=== PATIENT | male | born 1940 | race Caucasian/White ===

== ENCOUNTER 2018-08-27 05:23 | Day surgery (SDC) | payer OTHER, BC ==
[~2018-08-27] VITALS: Ht 180.3 cm; Wt 92.1 kg
--- NOTE | ~2018-08-27 | O ---
[facility] [place] [address] OPERATIVE REPORT Name: SUKHDEV DIAZ Room #: 150-1 [facility]..#: [id number] Admission: 08/27/18 Attend Phys: Hugh Ayala MD Discharge: Date of : 40 Report #: [id number] THIS REPORT FOR: //name// CC: Thais Ayala DATE OF SERVICE: 08/27/2018 SURGEON: Hugh Ayala MD STREETCAR DISPATCHER: None. PREOPERATIVE DIAGNOSIS: Bilateral lower lid ectropion. POSTOPERATIVE DIAGNOSIS: Bilateral lower lid ectropion. OPERATION PERFORMED: Bilateral lower lid ectropion repair. ANESTHESIA: Local with IV sedation. COMPLICATIONS: None. INDICATIONS FOR PROCEDURE: This patient has bilateral acquired lower lid ectropion with chronic tearing and discharge. The current procedures are undertaken in order to improve the patient's visual function, lacrimal outflow, and level of comfort. Informed consent was obtained to include but not limit to the risk of loss of vision, bleeding, infection, scarring, failure to improve the problem and need for further surgery. DESCRIPTION OF OPERATION: The patient was taken to the operating room where 2% Xylocaine with epinephrine mixed with equal parts of 0.75% Marcaine with Wydase was administered transcutaneously and transconjunctivally to each lower lid and lateral canthal area. The patient was then prepped and draped in the usual sterile fashion. A Yumiko clamp was then used to clamp the left lateral canthus following which a sharp canthotomy and cantholysis were performed. The tarsal strip was prepared laterally, removing the lash bearing portion of the redundant lid margin and the redundant tarsal plate. Hemostasis was achieved with a monopolar cautery, as it was throughout the case. The tarsal strip was then secured to the internal portion of the lateral orbital tubercle with two interrupted 5-0 Prolene sutures. The lateral canthal angle was sharply reformed as the subcutaneous structures and the skin were closed with multiple interrupted 6-[address] [facility] [address] [place] [address] OPERATIVE REPORT Name: ABIGAIL DIAZOMON Room #: 150-1 [facility].#: [id number] Admission: 08/27/18 Attend Phys: Hugh Ayala MD Discharge: Date of : 40 Report #: [id number] Attention was then turned to the right side where the same procedure was performed. The wounds were cleaned and dressed with ophthalmic antibiotic ointment. The patient was then transported to the recovery area, having tolerated the procedure well with no anesthetic or operative complications being noted. By: [id number] Hugh Ayala MD /nt
[~2018-08-27 05:23] MED LIST: BIDIL TABLET1 EACH PO; CARVEDILOL25 MG PO; COZAAR 25 MG TA25 M2 PO; DEPAKOTE 250MG250 M1 PO; SERTRALINE HCL50 MG PO; XARELTO15 MG PO; ZYPREXA2.5 MG PO
[2018-08-27] MEDS ORDERED: TYLENOL325 MG PO (07:43)
[2018-08-27] MEDS ORDERED: VITAMIN B-12500 MCG PO (07:47)
[2018-08-27] MEDS ORDERED: DEPAKOTE ER500 MG PO (07:48)
[2018-08-27] MEDS ORDERED: VITAMIN D-32000 UNIT PO (07:50)
[2018-08-27] MEDS ORDERED: IRON325 PO (07:52)
[2018-08-27] MEDS ORDERED: AMARYL2 MG PO (07:52)
[2018-08-27] MEDS ORDERED: LASIX 20 MG TAB20 MG PO (07:53)
[2018-08-27] MEDS ORDERED: LOPERAMIDE 2 MG2 M1 PO (07:54)
[2018-08-27] MEDS ORDERED: VICTOZA0.6 MG/0.1 SUBQ (07:55)
[2018-08-27] MEDS ORDERED: LOVAZA1000 MG PO (07:56)
[2018-08-27] MEDS ORDERED: CENTRUM SILVER1 EAC4 PO (07:57)
[2018-08-27] MEDS ORDERED: SENNA8.6 MG PO (07:58)
[2018-08-27] MEDS ORDERED: ZOCOR20 MG PO (07:59)
[2018-08-27] MEDS ORDERED: SPIRONOLACTONE25 M1 PO (07:59)
[2018-08-27] MEDS ORDERED: TRAZODONE 150150 M1 PO (08:00)
[2018-08-27 10:19] VITALS: BP 144/95
== END 2018-08-27 11:05 | disposition home or self-care (01) ==
LOC: TBA 05:23 → OR 05:23
DX: H02.105 Unspecified ectropion of left lower eyelid (principal); H02.102 Unspecified ectropion of right lower eyelid; I10 Essential (primary) hypertension; E11.9 Type 2 diabetes mellitus without complications; I48.91 Unspecified atrial fibrillation; E78.5 Hyperlipidemia, unspecified; F32.9 Major depressive disorder, single episode, unspecified; Z95.0 Presence of cardiac pacemaker; Z79.01 Long term (current) use of anticoagulants; Z98.41 Cataract extraction status, right eye; Z98.42 Cataract extraction status, left eye; Z87.891 Personal history of nicotine dependence; Z96.653 Presence of artificial knee joint, bilateral; Z86.73 Personal history of transient ischemic attack (TIA), and cerebral infarction without residual deficits; Z98.890 Other specified postprocedural states; Z79.899 Other long term (current) drug therapy
CPT/HCPCS: 50010; 50101; 50386; 50398; 51636; 56527; 56531; 62110; 62850; 70005

== ENCOUNTER 2018-09-24 05:29 | Day surgery (SDC) | payer OTHER, BC ==
[~2018-09-24] VITALS: Ht 180 cm; Wt 92.0 kg
--- NOTE | ~2018-09-24 | O ---
[facility] [place] [address] OPERATIVE REPORT Name: SUKHDEV DIAZ Room #: 150-1 [facility]..#: [id number] Admission: 09/24/18 Attend Phys: Hugh Ayala MD Discharge: Date of : 40 Report #: [id number] THIS REPORT FOR: //name// CC: Justa Ayala DATE OF SERVICE: 09/24/2018 TIPPLE ENGINEER: None. PREOPERATIVE DIAGNOSIS: Bilateral upper lid ptosis with superior visual field defects both eyes. POSTOPERATIVE DIAGNOSIS: Bilateral upper lid ptosis with superior visual field defects both eyes. OPERATION PERFORMED: Bilateral upper lid functional ptosis repair. TIPPLE ENGINEER: None. ANESTHESIA: Local with IV sedation. COMPLICATIONS: None. INDICATIONS FOR PROCEDURE: This patient has bilateral upper lid ptosis with superior visual field loss both eyes. Visual field testing demonstrates dense superior visual defects. Retesting with the upper lid elevated shows an improvement in visual field loss of over 30% and in excess of 12 degrees. The current procedure is being undertaken in order to improve the patient's visual function. Informed consent was obtained to include but not limited to the risk of loss of vision, bleeding, infection, scarring, failure to improve the problem and need for further surgery, such as adjustment of lid height. DESCRIPTION OF PROCEDURE: The patient was taken to the operating room, where 2% Xylocaine with epinephrine mixed with equal parts of 0.75% Marcaine with Wydase was administered transcutaneously to each upper lid. The patient was then prepped and draped in the usual sterile fashion. An upper lid crease incision was then made bilaterally and the dissection was carried down until the orbital septum was identified. The orbital septum was then cleared and the preaponeurotic fat identified. The levator aponeurosis was then disinserted from the anterior surface of the tarsal plate and dissected [address] [address] OPERATIVE REPORT Name: SUKHDEV DIAZ Room #: 150-1 [facility].#: [id number] Admission: 09/24/18 Attend Phys: Hugh Ayala MD Discharge: Date of : 40 Report #: [id number] free in the avascular Real's muscle plane. The aponeurosis was then advanced and reattached to the anterior surface of the tarsal plate with interrupted mattress 6-0 Novafil sutures on each side, adjusting for height and contour. The redundant aponeurosis was then amputated. The incision was then closed with multiple interrupted 6-0 chromic sutures that were used to recreate an upper lid crease. The skin was closed with a running 6-0 plain gut suture. The wound was then cleaned and dressed with ophthalmic antibiotic ointment followed by a Telfa pad. The patient was transported to the recovery area, having tolerated the procedure well with no anesthesia or operative complications being noted. By: 0831 [id number] MD britany Doran
[~2018-09-24 05:29] MED LIST changes: +AMARYL2 MG PO; +CENTRUM SILVER1 EAC4 PO; +DEPAKOTE ER500 MG PO; +IRON325 PO; +LASIX 20 MG TAB20 MG PO; +LOPERAMIDE 2 MG2 M1 PO; +LOVAZA1000 MG PO; +SENNA8.6 MG PO; +SPIRONOLACTONE25 M1 PO; +TRAZODONE 150150 M1 PO; +TYLENOL325 MG PO; +VICTOZA0.6 MG/0.1 SUBQ; +VITAMIN B-12500 MCG PO; +VITAMIN D-32000 UNIT PO; +ZOCOR20 MG PO
[2018-09-24 07:30] VITALS: BP 117/68
[2018-09-24 07:49] LABS: CALCIUM 8.2 mg/dL (8.5-10.1); CREATININE 1.6 mg/dL (0.7-1.3); POTASSIUM 4.1 mmol/L (3.5-5.1)
== END 2018-09-24 09:17 | disposition home or self-care (01) ==
LOC: TBA 05:29 → OR 05:29
PROVIDERS: Anesthesiology
DX: H02.403 Unspecified ptosis of bilateral eyelids (principal); H53.462 Homonymous bilateral field defects, left side; H53.461 Homonymous bilateral field defects, right side; I10 Essential (primary) hypertension; E78.5 Hyperlipidemia, unspecified; E11.9 Type 2 diabetes mellitus without complications; I48.91 Unspecified atrial fibrillation; F32.9 Major depressive disorder, single episode, unspecified; Z98.41 Cataract extraction status, right eye; Z98.42 Cataract extraction status, left eye; Z96.653 Presence of artificial knee joint, bilateral; Z79.01 Long term (current) use of anticoagulants; Z87.891 Personal history of nicotine dependence; Z87.19 Personal history of other diseases of the digestive system; Z95.0 Presence of cardiac pacemaker; Z98.890 Other specified postprocedural states; Z79.899 Other long term (current) drug therapy; Z87.448 Personal history of other diseases of urinary system
CPT/HCPCS: 50010; 50101; 50386; 50398; 51636; 56528; 56531; 62110; 62850; 70005

== ENCOUNTER 2018-11-13 17:25 | Inpatient (IN) | payer OTHER, BC ==
[~2018-11-13] VITALS: Ht 177.8 cm; Wt 65.8 kg
[2018-11-13 17:44] VITALS: BP 135/79
[2018-11-13 18:34] LABS: URINE BILIRUBIN NEGATIVE (Negative); URINE BLOOD NEGATIVE (Negative); URINE CLARITY CLEAR; URINE COLOR YELLOW; URINE GLUCOSE-RANDOM* NEGATIVE (Negative); URINE KETONES NEGATIVE (Negative); URINE LEUKOCYTES-REFLEX NEGATIVE (Negative); URINE NITRITE-REFLEX NEGATIVE (Negative); URINE PROTEIN (DIPSTICK) NEGATIVE (Negative); URINE SPECIFIC GRAVITY 1.015 (1.005-1.035); URINE UROBILINOGEN 0.2 E.U./dl (0.2-1.0)
[2018-11-13 18:36] LABS: AMP/METHAMP Negative (Negative); BARBITURATES Negative (Negative); BENZODIAZEPINES Negative (Negative); COCAINE Negative (Negative); METHADONE Negative (Negative); OPIATES Negative (Negative); PCP Negative (Negative)
[2018-11-13 18:58] LABS: ABSOLUTE NEUTROPHILS 2.8 thou/uL (1.4-8.2); BASOPHILS 0.8 % (0.0-2.0); EOSINOPHILS 5.5 % (0.0-3.0); HEMATOCRIT 29.7 % (42.0-52.0); HEMOGLOBIN 10.6 gm/dL (14.0-18.0); LYMPHOCYTES 32.8 % (24.0-44.0); MCH 34.6 pg (26.0-34.0); MCHC 35.6 g/dL (28.0-37.0); MONOCYTES 8.8 % (1.0-8.0); PLATELET COUNT 150 thou/uL (150-400); POLYS 52.1 % (36.0-66.0); RBC 3.06 mil/uL (4.50-6.00); RDW 13.1 % (10.5-14.5); WBC 5.3 thou/uL (4.0-11.0)
[2018-11-13 19:09] LABS: ANION GAP 8 mmol/L (7-16); BUN 24 mg/dL (7-18); CALCIUM 8.8 mg/dL (8.5-10.1); CHLORIDE 103 mmol/L (98-107); CO2 28 mmol/L (21-32); CREATININE 1.6 mg/dL (0.7-1.3); GLUCOSE 238 mg/dL (74-106); POTASSIUM 4.5 mmol/L (3.5-5.1); SODIUM 139 mmol/L (136-145)
[2018-11-13 19:17] LABS: ALBUMIN 3.3 g/dL (3.4-5.0); MAGNESIUM 2.1 mg/dL (1.8-2.4); SALICYLATE < 2.8 mg/dL (2.8-20.0); SGOT 19 U/L (15-37); SGPT 11 U/L (30-65); TOTAL BILIRUBIN 0.3 mg/dL (<0.1-1.0); TOTAL PROTEIN 6.8 g/dL (6.4-8.2); TROPONIN-I <0.06 ng/mL (<0.06)
[2018-11-13 20:30] VITALS: BP 143/110
--- NOTE | 2018-11-14 01:06 | NUR ---
ASSUMED PT CARE 1900. PT ARRIVED TO UNIT VIA ER. PT ALERT TO SELF. ADMISSION COMPLETED. PT CONFUSED, AND ANXIOUS. PT REORIENTED TO SITUATION AND PLACE MULTIPLE TIMES. PT BELONGINGS PLACED IN LOCKER. PT WANTED TO USE PHONE APPROX 0000. PT BECAME AGITATED AND FRUSTRATED WHEN TOLD HE COULD NOT USE PHONE, REACHED OVER THE DOOR AND ATTEMPTED TO ENTER THE NURSES STATION AFTER BEING TOLD MULTIPLE TIMES HE COULD NOT COME INTO THE STATION. PHONE CALL PLACED TO [employer] BILL. [employer] RETURNED CALL AND ORDERS PLACED TO RESTART SOME OF PT HOME MEDICATIONS. NURSE SPOKE WITH PT APPROX 2030, WAS GIVEN UPDATE ABOUT PT STATUS AND INFORMED THE DOCTOR WOULD SEE PT IN AM. LEFT PHONE NUMBER AND REQUESTED TO SPEAK WITH THE DR IN THE MORNING. WOULD LIKE TO VISIT BUT FEARS HER PRESENCE WOULD ONLY INCREASE AGITATION BECAUSE SHE STATES "HE PLACES ALL THE BLAME ON ME, WHICH IS THE USUAL". WILL LET DAY NURSE KNOW WOULD LIKE TO SPEAK WITH NURSE. CONTINUING TO MONITOR. WILL CONTINUE POC UNTIL EOS.
[2018-11-14 07:49] VITALS: BP 166/108
--- NOTE | 2018-11-14 09:05 | NUR ---
ASSUMED PATIENT CARE AT 0700. PATIENT UP AND WANDERING AROUND FROM D.R. TO NURSE'S STATION. REPEATEDLY ASKING ABOUT HIS PERSONAL CANE. NURSE REMINDED HIM EACH TIME THAT THE NURSE PRACTIONER WILL BE IN TO ADDRESS THE ISSUE. IN THE MEANTIME, PATIENT EDUCATED THAT HE IS TO USE THE WALKER FOR AMBULATION. PATIENT UNDERSTOOD WHAT THE NURSE WAS TELLING HIM.
--- NOTE | 2018-11-14 11:32 | NUR ---
SW was able to complete Psychosocial with Pt. Pt was oriented to self, time and place. Pt was alert and able to give information. Pt denied knowing his dx of dementia and repeatedly asked to call his . Pt stated he has not been able to call her since he arrived and would like to. Pt also insisted he needed to talk to the doctor about "sizures" he was having. SW explained to the Pt why he was on the unit and what we are here to assist with. Pt nodded as if he understood. Pt was clam during the interaction and compliant. SW did call Pt's , Meg [phone], @9230 and left a message for a return call back.
[2018-11-14 13:19] VITALS: BP 166/108
--- NOTE | 2018-11-14 17:38 | NUR ---
PATIENT C/O HAVING DIARRHEA--HAS HAD 2 LOOSE STOOLS, ASKING FOR TWO LOMOTIOL. NURSE CALLING HOSPITALIST, DR. OGDEN.
[2018-11-14 21:54] VITALS: BP 153/101
--- NOTE | 2018-11-14 23:52 | NUR ---
PT AMBULATING IN HALLWAY WITH WALKER AND IS TOLERATING WELL. DENIES PAIN. RESTING COMFORTABLY. NO NEEDS VOICED. CALL LIGHT WITHIN REACH. WILL CONTINUE TO PROVIDE FREQUENT OBSERVATION.
[2018-11-15 06:50] VITALS: BP 145/83
[2018-11-15 07:23] VITALS: BP 140/84
[2018-11-15 07:46] LABS: HEMATOCRIT 28.3 % (42.0-52.0); HEMOGLOBIN 9.9 gm/dL (14.0-18.0); MCH 33.8 pg (26.0-34.0); MCHC 35.1 g/dL (28.0-37.0); MCV 96.3 fL (80.0-100.0); RBC 2.94 mil/uL (4.50-6.00); WBC 5.6 thou/uL (4.0-11.0)
[2018-11-15 09:19] LABS: TSH 2.175 uIU/mL (0.358-3.740)
[2018-11-15 09:58] LABS: ANION GAP 14 mmol/L (7-16); BUN 19 mg/dL (7-18); CALCIUM 9.6 mg/dL (8.5-10.1); CHLORIDE 109 mmol/L (98-107); CHOLESTEROL 128 mg/dL (<200); CO2 23 mmol/L (21-32); CREATININE 1.5 mg/dL (0.7-1.3); GLUCOSE 61 mg/dL (74-106); HDL CHOLESTEROL 39 mg/dL (>40); LDL CHOLESTEROL 70 mg/dL (<100); POTASSIUM 3.6 mmol/L (3.5-5.1); SODIUM 146 mmol/L (136-145); TC:HDL 3.3 Ratio (Not establshd); TRIGLYCERIDE 98 mg/dL (<150); VLDL 20 mg/dL (<40)
--- NOTE | 2018-11-15 17:04 | NUR ---
ASSUMED CARE OF PT @ 0700. PT ATE MEALS UP IN DAYROOM. ALERT TO SELF, PERSON & REORIENTED TO PLACE AND TIME. PT PLEASANT THROUGHOUT SHIFT. NO AGGRESSIVE BEHAVIOR NOTED. PT TALKED TO ON PHONE EARLIER IN SHIFT AND WAS PLEASANT. VISITED IN AFTERNOON AND REQUESTED STAFF ASSIST PT W/SHAVING IN AM WHEN AM CARE COMPLETED. PT VOICED NO COMPLAINTS OF PAIN. NO ACUTE DISTRESS NOTED. BLOOD SUGARS (BS) MONITORED. BS THIS AM WAS 60 & PT RECEIVED JUICE & 1/2HR LATER BS WAS 130. PT NAPPED THIS AFTERNOON, AND AMBULATED ADLIB IN HALLWAY. PT CHANGED CLOTHING 3 TIMES THROUGHOUT THE DAY. ATTENDED GROUPS/ACTIVITIES ON UNIT. NO ACUTE DISTRESS NOTED. CONTINUE TO MONITOR THROUGHOUT SHIFT. PT AND VISITED W/O INCIDENT. PT COMPLIANT W/MEDS.
[2018-11-15 17:16] VITALS: BP 117/72
--- NOTE | 2018-11-15 17:58 | NUR ---
PT LYING IN BED IN HIS ROOM AFTER RECEIVING PRN PAIN MED FOR COMPLAINTS OF LOWER BACK PAIN. CONTINUE TO MONITOR THROUGHOUT SHIFT.
[2018-11-15 19:41] VITALS: BP 137/79
--- NOTE | 2018-11-16 03:04 | NUR ---
PT AMBULATING IN HALLWAYS WITH WALKER INDEPENDENTLY AND IS TOLERATING FAIR. DENIES PAIN. RESTING COMFORTABLY. NO NEEDS VOICED. CALL LIGHT WITHIN REACH. WILL CONTINUE TO PROVIDE FREQUENT OBSERVATION.
--- NOTE | 2018-11-16 03:16 | NUR ---
COMPLIENT WITH HS MEDICATIONS-CONVERSATION RELEVENT AND GOAL DIRECTED-DID HAVE SOME NOTED CONFUSION RE INDICATION,NAME OF HS MEDICATIONS STATING " I USED TO KNOW THEM ALL,THERE ARE A LOT" FULL RANGE AFFECT. DENIES COMPLAINTS/CONCERNS.
[2018-11-16 07:51] VITALS: BP 123/74
[2018-11-16 19:34] VITALS: BP 137/92
--- NOTE | 2018-11-17 03:18 | NUR ---
OBSERVED TO BE RESTLESS THIS PM EVIDENCED BY FREQUENT POSITION CHANGES-SITS ON BED FOR APPROX 5-10 MINUTES BEFORE COMING TO NURSES STATION WITH VARIOUS CONCERNS AND REQUESTS-MANY REPETITIVE IN NATURE. HAS STATED SEVERAL TIMES THAT HE THOUGHT HE WAS GOING HOME TONIGHT-WANTED TO CALL ,PACK UP BELONGINGS ETC-REORIENTED/REASSURED FREQUENTLY AND WILL CALM BRIEFLY BEFORE SEEKING OUT STAFF. ORIENTED TO YEAR AND DAY BUT IDENTIFIED MONTH DECEMBER AND THOUGHT HE WAS AT [facility]-NO VERBAL OR PHYSICAL AGITATION NOTED OR REPORTED.DID FALL ASLEEP IN DAYROOM AT APPROX 2300-ASSISTED TO BED BY STAFF AND APPEARS TO BE RESTING QUIETLY SINCE THAT TIME ETC-DOES THIS MULTIPLE TIMES UNTIL APPROX.2330 WHEN HE FELL ASLEEP IN DAYROOM SITTING IN CHAIR-ASSSITED TO BED AND HAS APPEARED TO REST QUIETLY.
[2018-11-17 08:00] VITALS: BP 136/87
[2018-11-17 08:16] VITALS: BP 136/87
--- NOTE | 2018-11-17 08:37 | NUR ---
ASSUMED PT CARE AT 0700 REPORT RECEIVED FROM NURSE. PT IS AOX4 VS TAKEN. PT BLOOD SUGAR IS 40 THIS AM. ORANGE JUICE GIVEN. BLOOD SUGAR TO BE RECHECKED AFTER BREAKFAST. PT ATE BREAKFAST THIS AM. GLIMEPIRIDE ON HOLD.WILL CONTINUE TO MONITOR PT
--- NOTE | 2018-11-17 10:52 | NUR ---
PT BLOOD SUGAR RECHECKED . NEW BLOOD SUGAR AAT 10:10 IS 168. PT AMBULATES WELL WITH WALKER. CHANGED OWN CLOTHES. PARTICIPATED IN GROUP. NO COMPLAINT OF PAIN. WILL CONTINUE TO MONITOR.
--- NOTE | 2018-11-17 17:28 | NUR ---
PT RECEIVED EVENING MEDICINE. VISITED EARLIER PT ATE DINNER.
--- NOTE | 2018-11-17 22:44 | NUR ---
ASSUMED CARE OF THE PATIENT AT 2000 PM. ALERT ET ORIENTED X 3. WALKS WITH A WALKER, HAS A FAIRLY STEADY GAIT. HIS HS BLOOD SUGAR WAS 78, A SNACK WAS GIVEN TO HIM, THEN IT CAME UP TO 111 AT 2230. DENIES PAIN, DENIES A/V HALLUNICATIONS, ANXIETY, DEPRESSION, AND SI/HI. WILL CONTINUE WITH 12 MINUTE CHECKS.
--- NOTE | 2018-11-18 06:48 | NUR ---
THE PT SLEPT 6 HOURS LAST NIGHT.
[2018-11-18 07:15] VITALS: BP 126/84
--- NOTE | 2018-11-18 11:15 | NUR ---
ASSUMED PATIENT CARE AT 0700. PATIENT IN BED, SOUNDLY SLEEPING AT THAT TIME. DIFFICULT TO AWAKEN; DID GET UP FOR BREAKFAST AT 0830. ATE PARTIAL BREAKFAST, WENT TO HIS ROOM WITH NURSE FOR B-12 INJECTION. CURRENTLY SITITNG AT TABLE IN LARGE GROUP ROOM. DID NOT PARTICIPATE IN R.T. GROUP THIS A.M. DROWSY. CONTINUE TO MONITOR.
[2018-11-18 19:34] VITALS: BP 116/73
--- NOTE | 2018-11-18 21:33 | NUR ---
ASSUMED CARE OF THE PATIENT AT 2000 PM. ALERT ET ORIENTED X 3. MAKES NEEDS KNOWN. WALKS WITH A WALKER, HAS A STEADY GAIT. HAS A FLAT AFFECT. DENIES ANXIETY AND DEPRESSION. DENIES SI/HI, A/V HALLUNICATIONS. DENIES RACING THOUGHTS AND NIGHTMARES. HIS HS BLOOD SUGAR WAS 199. HE WAS GIVEN A SNACK EARLIER IN THE NIGHT. REMAINS ON 12 MINUTE CHECKS.
--- NOTE | 2018-11-19 01:49 | NUR ---
THE PT AT THIS TIME IS IN THE DAYROOM SITTING ON ONE OF THE COUCHS, HE REFUSES TO GO TO BED. DENIES PAIN AT THIS TIME.
--- NOTE | 2018-11-19 06:16 | NUR ---
THE PT SLEPT 5 HOURS LAST NIGHT.
[2018-11-19 06:18] VITALS: BP 103/58
[2018-11-19 07:44] VITALS: BP 137/65
--- NOTE | 2018-11-19 15:37 | NUR ---
CHHAYA met Julieta pt to discuss his discharge to [facility] for memory care unit. Julieta stated that she would like to send a referral to another facility. CHHAYA provided the contact number for [facility], and [facility]. julieta stated that she will visit both facilities. Dr. Landa discuss pt medication, and diagnosis concerning his treatment. Julieta stated that she does not have any support due to her children living an another state. CHHAYA completed psychosocial assessment. CHHAYA scheduled transpotation through [facility] for November 20, 2018. CHHAYA will follow-up with pt upon discharge.
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
[2018-11-19 19:27] VITALS: BP 130/76
--- NOTE | 2018-11-20 04:08 | NUR ---
DENIES COMPLAINTS OR CONCERNS UPON INITAL ASSESSMENT THIS PM-OBSERVED TO BE SITTING QUIETLY IN DAYROOM EATING SNACK-DENIES C/O PAIN/DISCOMFORT-ORIENTED TO PERSON AND HOSPITAL INCORRECTLY IDENTIFYING DATE Aug-STATES DAY WAS "GOOD" AND RATES ANXIETY 4 0R 5 ON 1-10 SCALE. HOWEVER PM PROGESSED NOTED TO BECOME MORES RESTLESS/ANXIOUS-GOING BACK AND FORTH BETWEEN ROOM AND DAYROOM-CHANGING CLOTHES FREQUENTLY AT NURSES STATION MULTIPLE TIMES WITH VARIOUS REQUESTS AND CONCERNS. REMAINS PLEASANT WITH NO NOTED OR REPORTED AGITATION,IRRITABILITY, AND WILL ACCEPT VERBAL QUEING AND REDIRECT. AT APPROX. 2345 DID FALL ASLEEP IN CHAIR IN DAYROOM-HAS REMAINED IN DAYROOM IN CHAIR RESTING IN LONG INTERVALS.
[2018-11-20 04:55] VITALS: BP 156/94
--- NOTE | 2018-11-20 09:00 | NUR ---
CLIENT OUT IN GROUP THIS AM. TOLERATED BREAKFAST. UP WITH WALKER WHEN AMBULATION, STEADY GAIT. LUNGS CLEAR. DENIES ANY PAIN.
--- NOTE | 2018-11-20 10:28 | NUR ---
[facility] called to see if we would keep him over the weekend, due to the facility he is going to does not have a memory care bed open until Friday. She is concerned that if he goes to his old room and then transfers to another room it would be too much for him. She thinks due to his medical issues i.e. hypertension and anxiety it would cause mor problems to move him three times. I am awaiting on Dr. Wagner's arrival to discuss the possibility on Friday.
[2018-11-20] MEDS ORDERED: WELCHOL 625 MG625 M1 PO (12:16)
[2018-11-20] MEDS ORDERED: B-12500 MCG PO (12:16)
[2018-11-20] MEDS ORDERED: ZYPREXA 5 MG TAB5 M1 PO (12:16)
[2018-11-20] MEDS ORDERED: VIMPAT100 MG PO (12:16)
[2018-11-20] MEDS ORDERED: SERTRALINE HCL50 MG PO (12:16)
[2018-11-20] MEDS ORDERED: DEPAKOTE500 MG PO (12:16)
[2018-11-20] MEDS ORDERED: DEPAKOTE 250MG250 M1 PO (12:16)
--- NOTE | 2018-11-20 12:41 | NUR ---
I returned a phone call to [facility] to inform her that we are planning on discharging her today. She begged and insisted that we keep her . she reiterated that it would be too much for him. He would not be able to handle the moves due to his anxiety and blood pressure. She requested to speak to Dr. aWgner. Dr. Wagner was unavailable and stated he would return her phone call. She insisted on talking with someone higher up than I. I transferred her to [place] in risk managment. See notes. Transport was here waiting on discharge of the patient. I requested that they come back when we get the discharge figured out. They were agreeable to returning. I called [facility] to let them know what the situation was on discharge. Staff is in agreement to [facility] is discharging today. [facility].
[2018-11-20 12:55] VITALS: BP 114/78
[2018-11-20 13:23] VITALS: BP 156/109
--- NOTE | 2018-11-20 13:40 | NUR ---
CLIENT TAKING A NAP TODAY AFTER LUNCH. ABLE TO GET UP OUT OF BED AND USE WALKER TO GO TO BATHROOM. CLIENT ALSO ABLE TO HAVE LUNCH BEFORE TRANSFER TO [facility]. TRANSPORT HERE TO TRANSFER CLIENT TO FACILITY.
== END 2018-11-20 13:40 | DRG 884 ==
LOC: ER 17:25 → SBH 19:20 → EROBS 19:20 → SBH 19:20
PROVIDERS: Emergency Medicine; Internal Medicine; ADMIT Psychiatry & Neurology Psychiatry
DX: F01.51 Vascular dementia, unspecified severity, with behavioral disturbance (principal); F32.9 Major depressive disorder, single episode, unspecified; I48.2 Chronic atrial fibrillation; Z96.653 Presence of artificial knee joint, bilateral; E53.8 Deficiency of other specified B group vitamins; E78.5 Hyperlipidemia, unspecified; N18.3 Chronic kidney disease, stage 3 (moderate); I12.9 Hypertensive chronic kidney disease with stage 1 through stage 4 chronic kidney disease, or unspecified chronic kidney disease; E11.22 Type 2 diabetes mellitus with diabetic chronic kidney disease; Z98.42 Cataract extraction status, left eye; Z98.41 Cataract extraction status, right eye; Z95.0 Presence of cardiac pacemaker; Z09 Encounter for follow-up examination after completed treatment for conditions other than malignant neoplasm; Z86.73 Personal history of transient ischemic attack (TIA), and cerebral infarction without residual deficits; Z79.899 Other long term (current) drug therapy
CPT/HCPCS: 10880